=== PATIENT | male | born 1955 | race Caucasian/White ===

== ENCOUNTER 2017-02-25 11:53 | Inpatient (IN) ==
[2017-02-25] MEDS ORDERED: *HR* Heparin 5,000 UNIT/ML VIAL ONE (12:08)
[2017-02-25] MEDS ORDERED: *HR* Ticagrelor 90 MG TABLET ONE (12:08)
[2017-02-25] MEDS ORDERED: Aspirin 81 MG TAB.CHEW ONE (12:09)
[2017-02-25] MEDS ORDERED: 0.9 % Sodium Chloride 1,000 ML ONE ×2 (12:09→13:37)
[2017-02-25] MEDS: Aspirin 81 MG TAB.CHEW PO ONE ×2 (12:11→12:13)
[2017-02-25] MEDS: *HR* Ticagrelor 90 MG TABLET PO ONE ×2 (12:12→12:15)
--- NOTE | 2017-02-25 12:14 | Emergency Department Note ---
Disposition Clinical Impression: STEMI (ST elevation myocardial infarction) Qualifiers: Involved coronary artery: right coronary artery Qualified Code(s): I21.11 - ST elevation (STEMI) myocardial infarction involving right coronary artery Disposition: Admitted As Inpatient Condition: Critical Chest Pain HPI - General Chief Complaint: ED Chest Pain Stated Complaint: chest pain Time Seen by Provider: 02/25/17 12:06 Source: patient Mode of arrival: private vehicle Limitations: no limitations Vital Signs Reviewed: Yes Nursing Notes Reviewed: Yes - History of Present Illness HPI Narrative: 61-year-old male presents to the ER with a chief complaint of chest pain. Patient reports he had pain starting yesterday evening. States it "feels like spiders going across his chest". Reports the pain comes and goes for a few minutes at a time. Reports he broke out into a sweat this morning. States he tried to drywall to get through the pain. Denies prior history of cardiac disease. No history of hypertension, diabetes or hyperlipidemia. He does smoke daily. Upon arrival patient was noted to have a STEMI criteria by EKG. STEMI alert called at 12:03 Pt complaint: chest pain Onset (ago): day(s) Duration: intermittent Onset: during rest Pain Location: substernal Severity: moderate Severity scale (1-10): 5 Pain Radiation: none Improves with: nothing Worsens with: nothing Associated symptoms: Reports: diaphoresis. Denies: nausea, vomiting, dyspnea Treatments prior to arrival chest pain: none - Related Data On Oral Contraceptives: No Home Medications Medication Instructions Recorded Confirmed Ustekinumab [STELARA (For 90 mg SQ Q3M 02/25/17 02/25/17 Outpatient Infusion)] Allergies Allergy/AdvReac Type Severity Reaction Status Date / Time Amoxicillin [From Augmentin] Allergy Hives Verified 11/17/14 19:27 clavulanic acid Allergy Hives Verified 11/17/14 19:27 [From Augmentin] sulfamethoxazole Allergy Hives Verified 11/17/14 19:27 [From Bactrim] trimethoprim [From Bactrim] Allergy Hives Verified 11/17/14 19:27 All systems ED: reviewed and negative except as stated. Cardiovascular: Reports: chest pain Respiratory: Denies: cough, dyspnea Gastrointestinal: Denies: abdominal pain, nausea, vomiting, diarrhea Chest Pain PMH - Past Medical History Medical history: Reports: no medical history Surgical history: Reports: herniorrhaphy Psychiatric history: Reports: no psych history - Social History Smoking Status: Current every day smoker Alcohol use: Reports: none Drug use: Reports: none Physical Exam - General Limitations: no limitations General appearance: alert, in no apparent distress - Head Head exam: atraumatic, normocephalic - Eye Eye exam: Present: normal appearance - ENT ENT exam: normal exam - Neck Neck exam: Present: normal inspection - Chest Chest inspection: Present: normal inspection, symmetric chest wall rise - Respiratory Respiratory exam: Present: normal lung sounds bilaterally - Cardiovascular Cardiovascular exam: Present: regular rate, normal rhythm, normal heart sounds - Abdominal Exam Abdominal exam: Present: soft, Non-Tender. Absent: tenderness - Extremities Exam Extremities exam: Present: normal inspection, full ROM - Expanded Upper Extremity Exam Shoulder exam: Present: normal inspection, full ROM Arm exam: Present: normal inspection, full ROM Elbow exam: Present: normal inspection, full ROM Forearm/Wrist exam: Present: normal inspection, full ROM Hand exam: Present: normal inspection, full ROM - Expanded Lower Extremity Exam Hip/Pelvis exam: Present: normal inspection, full ROM Upper leg exam: Present: normal inspection, full ROM Knee exam: Present: normal inspection, full ROM Lower leg exam: Present: normal inspection, full ROM Ankle exam: Present: normal inspection, full ROM Foot/toe exam: Present: normal inspection, full ROM - Skin Skin exam: Present: warm, dry, intact Course Course Narrative: Patient seen and examined the time of arrival. Noted to have STEMI on EKG. We will discussed emergently with the on-call tool/die maker. We will also obtain chest x-ray as well as labs including troponin. - Consultations Consultation #1: Patient evaluated in the emergency department by interventional cardiology. Patient given aspirin and discussed with design supervisor for preference of antiplatelet. Reports Brilinta is fine. Vital Signs Temperature 96.9 F L 02/25/17 11:58 Pulse Rate 67 02/25/17 11:58 Respiratory Rate 16 02/25/17 11:58 Blood Pressure 155/102 02/25/17 11:58 O2 Sat by Pulse Oximetry 99 02/25/17 11:58 Temperature 96.9 F L 02/25/17 11:58 Pulse Rate 67 02/25/17 11:58 Respiratory Rate 16 02/25/17 11:58 Blood Pressure 155/102 02/25/17 11:58 O2 Sat by Pulse Oximetry 99 02/25/17 11:58 Oxygen Delivery Oxygen Delivery Room Air Chest Pain - MDM Narrative Medical decision making narrative: 61-year-old male presents to the ER did intermittent chest pain since yesterday. No prior history of cardiac disease. STEMI on initial EKG. Interventional cardiology evaluated the patient in the department. He will go emergently to the [facility] for evaluation. Patient given aspirin and brilinta and remained hemodynamically stable during his emergency department stay. - Lab Data Result diagrams: 02/25/17 12:10 02/25/17 12:10 Lab Results 02/25/17 02/25/17 02/25/17 Range/Units 12:10 12:10 12:10 WBC 11.0 (4.3-11.1) K/mcL RBC 5.42 (4.19-5.50) M/mcL Hgb 15.9 (12.9-16.9) g/dL Hct 47.0 (37.5-50.1) % MCV 86.7 (83.0-100.0) fL MCH 29.3 (28.0-33.3) pg MCHC 33.8 (31.6-35.5) g/dL RDW 12.8 (11.5-14.5) % Plt Count 235 (140-400) K/mcL MPV 10.8 (9.4-12.4) fL Immature Gran % 0.5 (0-4) % Seg Neutrophils % 49.5 % Lymphocytes % 36.4 % Monocytes % 9.3 % Eosinophils % 3.7 % Basophils % 0.6 % Neutrophils # 5.4 (1.6-8.9) K/mcL Lymphocytes # 4.0 (0.6-4.6) K/mcL Monocytes # 1.0 (0.0-1.3) K/mcL Eosinophils # 0.4 (0.0-0.6) K/mcL Basophils # 0.1 (0.0-0.2) K/mcL PT 10.5 (9.4-12.1) Seconds INR 1.0 APTT 27.6 (26.0-36.0) Seconds Sodium (136-145) mEq/L Potassium (3.5-5.1) mEq/L Chloride (98-107) mEq/L Carbon Dioxide (23-29) mEq/L BUN (6-20) mg/dL Creatinine (0.70-1.30) mg/dL Est GFR ( Amer) (> 60) Est GFR (Non-Af Amer) (> 60) BUN/Creatinine Ratio (6-26) Glucose (70-105) mg/dL Calculated Osmolality (280-300) Calcium (8.6-10.3) mg/dL Troponin I (< 0.04) ng/mL B-Natriuretic Peptide 23 (Less than 100) pg/mL 02/25/17 02/25/17 Range/Units 12:10 12:10 WBC (4.3-11.1) K/mcL RBC (4.19-5.50) M/mcL Hgb (12.9-16.9) g/dL Hct (37.5-50.1) % MCV (83.0-100.0) fL MCH (28.0-33.3) pg MCHC (31.6-35.5) g/dL RDW (11.5-14.5) % Plt Count (140-400) K/mcL MPV (9.4-12.4) fL Immature Gran % (0-4) % Seg Neutrophils % % Lymphocytes % % Monocytes % % Eosinophils % % Basophils % % Neutrophils # (1.6-8.9) K/mcL Lymphocytes # (0.6-4.6) K/mcL Monocytes # (0.0-1.3) K/mcL Eosinophils # (0.0-0.6) K/mcL Basophils # (0.0-0.2) K/mcL PT (9.4-12.1) Seconds INR APTT (26.0-36.0) Seconds Sodium 135 L (136-145) mEq/L Potassium 3.8 (3.5-5.1) mEq/L Chloride 103 (98-107) mEq/L Carbon Dioxide 24 (23-29) mEq/L BUN 11 (6-20) mg/dL Creatinine 1.01 (0.70-1.30) mg/dL Est GFR ( Amer) > 60 (> 60) Est GFR (Non-Af Amer) > 60 (> 60) BUN/Creatinine Ratio 11 (6-26) Glucose 115 H (70-105) mg/dL Calculated Osmolality 280 (280-300) Calcium 10.0 (8.6-10.3) mg/dL Troponin I < 0.03 (< 0.04) ng/mL B-Natriuretic Peptide (Less than 100) pg/mL - EKG Data EKG attestation: Yes I reviewed and interpreted this EKG. EKG results narrative: EKG demonstrates sinus rhythm. Normal axis. Normal intervals. Noted have elevations in leads 2, 3, aVF as well as reciprocal changes in the anterior leads V1V3. No prior EKG for comparison. Impression: STEMI Attestation Statement - Attestation Attestation: I, Merlin Perdomo DO, examined this patient [id number] and my medical decision-making was reviewed with Dr. Pedrito Waters, Resident Physician. I agree with the documented findings, disposition and treatment plan as described except to the extent set forth below. Please see my progress notes for details. 61-year-old male presents to emergency room with chest pain. EKG confirmed what appears to be an acute myocardial infarction. ST segment elevations were noted in leads 23 and aVF as well as leads V5 and V6. A STEMI alert was called at 1203 hours. Patient was provided with heparin and brilinta at the bedside by mouth. Patient has no history of GI bleed or widened mediastinum. STEMI alert protocol was started that time. Patient has had persistent symptoms here today. [facility] team is at the bedside within [address] Buckner was also at the bedside and review the EKG and consult with the patient. Again the patient to the [facility] at this time. Time of transport from the emergency department was 1220. Patient was stable speaking in full sentences in no acute distress at time of transfer to the catheterization lab. See detailed documentation of physical exam, medical intervention, medical decision-making and disposition and the resident physician's note. No critical care applied to the treatment course of this patient
[2017-02-25 12:19] LABS: Basophils # 0.1 K/mcL (0.0-0.2); Basophils % 0.6 %; Eosinophils # 0.4 K/mcL (0.0-0.6); Eosinophils % 3.7 %; Hemoglobin 15.9 g/dL (12.9-16.9); Immature Granulocytes % 0.5 % (0-4); Lymphocytes % 36.4 %; Mean Corpuscular HGB Conc 33.8 g/dL (31.6-35.5); Mean Corpuscular Hemoglobin 29.3 pg (28.0-33.3); Mean Corpuscular Volume 86.7 fL (83.0-100.0); Mean Platelet Volume 10.8 fL (9.4-12.4); Monocytes % 9.3 %; Neutrophils # 5.4 K/mcL (1.6-8.9); Platelet Count 235 K/mcL (140-400); Red Blood Count 5.42 M/mcL (4.19-5.50); Red Cell Distribution Width 12.8 % (11.5-14.5); Segmented Neutrophils % 49.5 %
[2017-02-25] MEDS ORDERED: *HR* Midazolam HCl 5 MG/5 ML VIAL IVP ONE (12:25)
[2017-02-25] MEDS ORDERED: Verapamil 5 MG/2 ML VIAL ONE (12:25)
[2017-02-25 12:26] LABS: Prothrombin Time 10.5 Seconds (9.4-12.1)
[2017-02-25] MEDS ORDERED: *HR* FentaNYL (PF) 250 MCG/5 ML VIAL ONE (12:26)
[2017-02-25 12:28] LABS: Activated Partial Thrombo Time 27.6 Seconds (26.0-36.0)
[2017-02-25 12:36] LABS: BUN/Creatinine Ratio 11 (6-26); Blood Urea Nitrogen 11 mg/dL (6-20); Carbon Dioxide 24 mEq/L (23-29); Chloride 103 mEq/L (98-107); Glucose 115 mg/dL (70-105); Osmolality,Calculated 280 (280-300); Potassium 3.8 mEq/L (3.5-5.1); Sodium 135 mEq/L (136-145); eGFR For African Americans > 60 (> 60); eGFR For Non-African Americans > 60 (> 60)
[2017-02-25] MEDS ORDERED: Tirofiban 12.5 MG/250ML 12.5 MG/250 ML BAG ONE (12:44)
[2017-02-25] MEDS ORDERED: *HR* Atropine Sulfate 1 MG/10 ML SYRINGE ONE (12:48)
[2017-02-25] MEDS ORDERED: Heparin 1,000 UNITS/500 mL 500 ML ONE (13:37)
[2017-02-25] MEDS ORDERED: *HR* Heparin 10,000 UNIT/10 ML VIAL ONE (13:37)
--- NOTE | 2017-02-25 13:46 | Cardiology Consult Note ---
Date of Encounter: 02/25/17 Time of Encounter: 11:56 Assessment and Plan Discussion w patient/family: The assessment and plan as outlined above was discussed with the patient and/or family members who expressed understanding and agreement. All questions were answered. Thank you for involving us in the care of your patient. Please call with any questions. To the manager labor relations for urgent assessment History of Present Illness Consult date: 02/25/17 Requesting physician: Merlin Perdomo Consult reason: STEMI Chief complaint: chest pain History of present illness: Mr. Granados is a 61 year old male admitted in the ED with severe CP intermittent for over a year and much worse today. Diaphoresis and some emesis. EKG with STEMI inferior and lateral wall. No known CAD hx. Fell off ladder 4 weeks ago and hurt right hip. Needs X ray Past Med Surg Social Fam HX - Past Medical History Medical history: no medical history Psychiatric history: no psych history - Past Surgical History Surgical History: herniorrhaphy - Social History Smoking Status: Current every day smoker Smokeless Tobacco Status: No Alcohol use: none Drug use: none Medications and Allergies Ustekinumab [STELARA (For Outpatient Infusion)] 90 mg SQ Q3M 02/25/17 [History] 3 Allergy/AdvReac Type Severity Reaction Status Date / Time Amoxicillin [From Augmentin] Allergy Hives Verified 11/17/14 19:27 clavulanic acid Allergy Hives Verified 11/17/14 19:27 [From Augmentin] sulfamethoxazole Allergy Hives Verified 11/17/14 19:27 [From Bactrim] trimethoprim [From Bactrim] Allergy Hives Verified 11/17/14 19:27 All Systems Review: A 10-system review of systems was performed and is negative for pertinent findings except as documented above in the HPI. - Constitutional Constitutional: fatigue, night sweats - Cardiovascular Cardiovascular: as per HPI Physical Examination General: Conversant HEENT: Atraumatic, Normocephaly Neck: No JVD Cardiac: Reg Rate and Rhythm, Normal S1 and S2, No Murmur Lungs: Normal Breath Sounds Neuro: Alert and responsive Abdomen: Soft Skin: No rashes noted on visualized skin Musculoskeletal: No Chest Wall Tenderness Extremities: No Clubbing, No Cyanosis, No Edema Results 02/25/17 12:10 02/25/17 12:10 Consult Discharge Plan - Plan Referrals: Roland Gallegos MD [Primary Care Provider] -
--- NOTE | 2017-02-25 13:52 | Invasive Diagnostic Lab Proc ---
Name: Robby Granados Date of Study: 02/25/2017 Date: 1955 Ht: 70.1in Medical Record#: [id number] Age: 61 Wt: 233.69lb Gender: Male BSA: 2.23 Order #: [id number] BMI: 33.46 Physicians Procedure Physician: Claudio Buckner MD Referring MD: Referring MD: Staff Name Position Time In [facility] RT (R) Scrub 12:19 PM Magdalene Earl RN Training Director 12:19 PM Pwael Barrow RN Monitor 12:19 PM Indications Indication STEMI Procedures Performed Procedure PRQ CARD REVASC CT 1 VSL L HRT ARTERY/VENTRICLE ANGIO PRQ CARD KEITH STENT W/ANGIO 1 VSL Pre-Procedure Checklist Informed consent is complete signed and on chart. H&P is on chart. ID band is on and ID verified with patient. Patient NPO for procedure The procedure was described for the patient and questions were answered. Blood Pressure: 137/88 ECG is on chart. Rhythm: NSR Plan of Care Patient will tolerate the procedure without complications. Adequate level of comfort will be maintained. Hemodynamics will remain stable Patient will recover from procedure without complications. Respiratory function will be maintained. Cardiac rhythm will remain stable. Patient temperature will be maintained. Patient and/or family have verbalized understanding of the procedure. Patient Education Chief Complaint/Reason for Test: Cardiac Cath Developmental Category: Adult (18-64 years) Developmentally Appropriate for Age: Yes Learning Barriers: None Education Needs: Procedure Education Method: Verbal Information Taught: Cardiac Cath Educational Evaluation: Able to repeat information Intravenous Access Time IV Size Location DC'd Fluid/Drip Rate Units RN 12:29 PM 18g 1 14" Patent On Arrival Lt Antecubital 12:29 PM 18g 1 14" Patent On Arrival Rt Antecubital 0.9NaCl 100 ml/hr Pawel Barrow RN Allergies sulfamethoxazole Amoxicillin Vital Signs Time BP (mmHg) HR (bpm) O2 Sat. RR (bpm) LOC 12:58 PM 134 / 74 75 100 % 22 01:00 PM 132 / 83 70 98 % 17 01:04 PM 120 / 80 67 100 % 11 01:05 PM 122 / 84 50 100 % 16 01:10 PM 129 / 90 52 100 % 16 01:15 PM 129 / 94 67 99 % 24 01:20 PM 91 / 47 52 100 % 22 12:25 PM 137 / 88 97 100 % 18 12:30 PM 138 / 85 75 100 % 18 12:35 PM 147 / 91 72 98 % 20 12:40 PM 147 / 100 67 100 % 22 12:45 PM 156 / 95 76 100 % 19 12:49 PM 142 / 96 50 100 % 26 12:50 PM 145 / 98 61 100 % 13 12:55 PM 147 / 88 83 100 % 10 Procedural Medications Time Medication Dose Units Method Given By 12:28 PM Oxygen 2 L/min nasal cannula Pawel Barrow RN 12:28 PM Versed 2 mg Intravenous Pawel Barrow RN 12:28 PM Fentanyl 50 mcg Intravenous Pawel Barrow RN 12:30 PM Lidocaine 2% 0.5 ml Subcutaneous Claudio Buckner MD 12:37 PM Lidocaine 2% 15 ml Subcutaneous Claudio Buckner MD 12:47 PM Heparin 3000 units Intravenous Pawel Barrow RN 12:47 PM Aggrastat 12.5mg/250ml 54 ml Intravenous Pawel Barrow RN 12:47 PM Aggrastat 12.5mg/250ml 19.5 ml Intravenous Pawel Barrow RN ASA Classification: CLASS II- Mild systemic disease (i.e. well-controlled diabetes, hypertension, asthma, cigarette smoking) Emergent Procedure: ASA score is assumed Monroe Score Preprocedure Postprocedure Activity 2- Moves 4 extremities sustained head lift Activity 2- Moves 4 extremities sustained head lift Circulation 2- SBP +/= 20 points of pre-anesthetic level Circulation 2- SBP +/= 20 points of pre-anesthetic level Consciousness 2- Awake and alert oriented x 3 Consciousness 2- Awake and alert oriented x 3 O2 Saturation 2- Able to maintain O2 satruation of 92% on room air O2 Saturation 2- Able to maintain O2 satruation of 92% on room air Respiratory 2- Able to deep breathe and cough well Respiratory 2- Able to deep breathe and cough well Total Score 10 Total Score 10 Contrast Agent: Isovue Diagnostic Contrast: 156 ml Total Contrast: 156 ml Fluoro Dose: 1287 mGy Activated Clotting Time Time Seconds to Clot 12:47 PM 153 01:07 PM 246 Procedure Log Time Note Enter By 12:12 PM CathStat 12:19 PM Pt arrived to laboratory analyst 2 at 12:19 [email or web address] 12:19 PM Physician arrived 12:19 csmith 12:19 PM Franki completed csmith 12:19 PM Sites, Georgina RT (R) Position: Scrub Time in: : csmith 12:19 PM Magdalene Earl RN Position:Monitor Time in: : csmith 12:20 PM Pawel Barrow RN Position:Training Director Time in: : csmith 12:20 PM Patient charges- Angio tray pack, Navilyst 3mm J, Pulse Oximetry and ACIST tubing and transducer csmith 12:25 PM Vitals capture started with the following parameters, Patient=Adult, Interval=5 min, Initial Iqrbacwl=309 mmHg, Deflation Rate=5 mmHg, Cuff placed on Right Arm 12:25 PM Case Start 12:25 PM HR=97 bpm, ADNA=240/88 mmhg, NmJ4=804.0 %, Resp=18 B/min, Comment=SR 12:26 PM Time out performed according to hospital policy csmith 12:26 PM Clinical Presentation: STEMI or equivalent csmith 12:27 PM Case Delayed No [email or web address] 12:28 PM Hair removed from procedure site in emergency department using clippers. Right groin prepped with Chloraprep by Magdalene Earl RN, safety strap applied then patient was draped. Skin intact. [email or web address] 12:28 PM Hair removed from procedure site in procedure lab using clippers. Right wrist prepped with Chloraprep by Magdalene Earl RN, safety strap applied then patient was draped. Skin intact. [email or web address] 12:28 PM ASA Class CLASS II- Mild systemic disease (i.e. well-controlled diabetes, hypertension, asthma, cigarette smoking) [email or web address] 12:28 PM Franki completed [email or web address] 12:28 PM Time: 12:28 Oxygen on at 2 L/min per nasal cannula by Pawel Barrow RN [email or web address] 12:28 PM Time: 12:28 Versed 2 mg Intravenous Given by Pawel Barrow RN [email or web address] 12:28 PM Time: 12:28 Fentanyl 50 mcg Intravenous Given by Pawel Barrow RN [email or web address] 12:29 PM pt received 324 aspirin, 180 brilinta and 5000 IV Heparin in the ED prior to arrival [email or web address] 12:30 PM Time: 12:30 0.5 ml Lidocaine 2% to right radial Subcutaneous Given by Claudio Buckner MD [email or web address] 12:30 PM HR=75 bpm, MENO=413/85 mmhg, JqU3=665 %, Resp=18 B/min 12:30 PM Pressure channel 2 zeroed. 12:34 PM Unsuccessful access attempt # 1 into the right Femoral artery. Manual pressure applied to achieve hemostasis.. [email or web address] 12:34 PM difficulty accessing right radial artery [email or web address] 12:35 PM prepping for femoral access [email or web address] 12:35 PM 7 ml air in Vasc Band. [email or web address] 12:35 PM HR=72 bpm, UTBA=555/91 mmhg, SpO2=98.0 %, Resp=20 B/min, Comment=SR 12:37 PM Time: 12:37 15 ml Lidocaine 2% to right groin Subcutaneous Given by Claudio Buckner MD [email or web address] 12:38 PM Access obtained by percutaneous puncture. 6Fr 10cm Terumo [place] sheath placed in right Femoral artery. [id number] [email or web address] 12:39 PM 5Fr FL 4 catheter inserted over the wire [facility] [email or web address] 12:39 PM 0.035 145cm Navilyst 3mmJ wire [id number] [email or web address] 12:40 PM Recorded Pressure: Ao, HR=72, Condition=Condition 1 (Aorta) Ao 128/88/107 12:40 PM HR=67 bpm, OJFH=249/100 mmhg, ExY1=867.0 %, Resp=22 B/min, Comment=SR 12:42 PM Catheter removed [email or web address] 12:42 PM 5Fr FR 4 catheter inserted over the wire DN [email or web address] 12:43 PM Recorded Pressure: Ao, HR=61, Condition=Condition 1 (Aorta) Ao 137/80/101 12:44 PM Lesion found in Distal RCA. Pre Stenosis: 100 Pre IRIS Flow: [email or web address] 12:45 PM Right Coronary, Right Posterior Descending Arteries with Right Posterolateral and Acute Marginal branches with 100 % stenosis. If graft is supplying this area, 0 % stenosis [email or web address] 12:45 PM Catheter removed [email or web address] 12:45 PM PCI Status Emergency [email or web address] 12:45 PM 6Fr JR 4 Runway guide catheter was used to cannulate the PCI vessel successfully. reused? No [email or web address] 12:45 PM HR=76 bpm, AHCL=156/95 mmhg, VgT6=117.0 %, Resp=19 B/min, Comment=SR 12:45 PM .014 [employer] [place] 190cm guide wire across target lesion- successful. reused? No [email or web address] 12:47 PM At 12:47 the ACT was 153 seconds. [email or web address] 12:47 PM Time: 12:47 Heparin 3000 units Intravenous Given by Pawel Barrow RN Beebe pump [email or web address] 12:47 PM Time: 12:47 Aggrastat 12.5mg/250ml 54 ml Intravenous Given by Pawel Barrow RN Beebe pump [email or web address] 12:48 PM Time: 12:47 Aggrastat 12.5mg/250ml 19.5 ml Intravenous Given by Pawel Barrow RN Beebe pump [email or web address] 12:48 PM Inflation device was opened. [email or web address] 12:48 PM 2.5 mm x 12 mm Emerge Monorail balloon across target lesion- successful. reused? No [email or web address] 12:49 PM NIBP STAT measurement started. 12:49 PM HR=50 bpm, UOAV=644/96 mmhg, StX2=885.0 %, Resp=26 B/min, Comment=SR 12:50 PM Balloon inflated @ 8 nneka for 8 seconds [email or web address] 12:50 PM HR=61 bpm, YQSY=292/98 mmhg, BlW8=347.0 %, Resp=13 B/min 12:51 PM Balloon inflated @ 8 nneka for 10 seconds [email or web address] 12:51 PM Balloon inflated @ 8 nneka for 7 seconds [email or web address] 12:52 PM Balloon inflated @ 8 nneka for 15 seconds [email or web address] 12:53 PM 2.75mm x 15mm Synergy drug-eluting stent across target lesion- successful Lot #[id number] [email or web address] 12:55 PM Stent deployed @ 19 nneka for 30 seconds [email or web address] 12:55 PM HR=83 bpm, XJJK=047/88 mmhg, OlE4=893.0 %, Resp=10 B/min 12:56 PM Stent delivery system removed intact. [email or web address] 12:57 PM NIBP STAT measurement started. 12:58 PM HR=75 bpm, IGHO=312/74 mmhg, OwT3=141 %, Resp=22 B/min 12:59 PM PCI lesion in Mid RCA. Pre Stenosis: 90 Pre IRIS Flow: [email or web address] 12:59 PM 3.0mm x 24mm Synergy drug-eluting stent across target lesion- successful Lot #[id number] [email or web address] 01:00 PM Coronary Dominance: right [email or web address] 01:00 PM HR=70 bpm, EPUN=747/83 mmhg, SpO2=98 %, Resp=17 B/min 01:00 PM Stent deployed @ 15 nneka for 30 seconds [email or web address] 01:01 PM Stent delivery system removed intact. [email or web address] 01:02 PM Guide catheter removed intact. [email or web address] 01:02 PM 6Fr XB3.5 Cordis guide catheter was used to cannulate the PCI vessel successfully. reused? No [email or web address] 01:03 PM NIBP STAT measurement started. 01:04 PM HR=67 bpm, AUXU=918/80 mmhg, DcU6=275 %, Resp=11 B/min 01:05 PM HR=50 bpm, SQZI=322/84 mmhg, LhT0=232 %, Resp=16 B/min 01:07 PM PCI lesion in Proximal LAD. Pre Stenosis: 90 Pre IRIS Flow: [email or web address] 01:07 PM At 13:07 the ACT was 246 seconds. [email or web address] 01:07 PM Proximal Left Anterior Descending Coronary Artery with 90% stenosis. If graft is supplying this territory, 0 % stenosis. [email or web address] 01:08 PM 3.0mm x 12mm Synergy drug-eluting stent across target lesion- successful Lot #[id number] [email or web address] 01:09 PM Recorded Pressure: Ao, HR=66, Condition=Condition 1 (Aorta) Ao 96/68/82 01:09 PM Stent deployed @ 18 nneka for 30 seconds [email or web address] 01:10 PM HR=52 bpm, WKHU=175/90 mmhg, XcG2=878.0 %, Resp=16 B/min, Comment=SR 01:12 PM Stent delivery system removed intact. [email or web address] 01:13 PM Recorded Pressure: LV, HR=58, Condition=Condition 1 (Left Ventricle) LV 116/14/13 01:13 PM 5Fr Pigtail catheter inserted over the wire [facility] [email or web address] 01:13 PM Catheter selectively placed in left ventricle [email or web address] 01:13 PM Bolus angiogram of left Ventricle complete: 10 ml/sec for a total of 30 mls [email or web address] 01:14 PM Recorded Pressure: LV, Ao, HR=66, Condition=Condition 1 (Left Ventricle) LV 125/1/19, (Aorta) Ao 109/48/82 01:14 PM Catheter removed [email or web address] 01:14 PM Wire removed [email or web address] 01:14 PM Bolus angiogram of right Femoral complete: 4 ml/sec for a total of 7 mls [email or web address] 01:15 PM HR=67 bpm, WOWH=638/94 mmhg, SpO2=99.0 %, Resp=24 B/min 01:16 PM Procedure completed at 13:16 [email or web address] 01:16 PM Sign out completed: Radiation Dose 1287.42 mGy Fluoro Time: 9.6 Isovue 370 - 200ml contrast 156 ml given by Claudio Buckner MD. Complications: NoneCardiac Rehab Consult needed: YesConfirmed administered medications: Yes [email or web address] 01:16 PM Isovue 370 - 200ml,1 Bottle(s) used. [email or web address] 01:17 PM Arterial sheath pulled, Angio-seal closure device used and was Successful [id number] S/N. [email or web address] 01:17 PM Estimated Blood Loss: less than 20cc [email or web address] 01:17 PM Post ECG NSR [email or web address] 01:17 PM Post Blood Pressure 129/94 [email or web address] 01:17 PM 13:17 Post Pulses Bilateral DP 1+ [email or web address] 01:17 PM Information taught Cardiac Cath, PCI, and Angioseal [email or web address] 01:17 PM Education needs Procedure, Plan of Care, and Responsibilities of Patient in Care [email or web address] 01:17 PM Learning barriers :None [email or web address] 01:17 PM Education Methods Verbal [email or web address] 01:17 PM Education evaluation Able to repeat information [email or web address] 01:18 PM Site status No bleeding/hematoma - Rt Groin as reported by Sites, Georgina RT (R) at 13:17 [email or web address] 01:20 PM Opsite applied [email or web address] 01:20 PM HR=52 bpm, NIBP=91/47 mmhg, SlE0=340.0 %, Resp=22 B/min 01:20 PM Plavix, Effient or Brilinta given Yes [email or web address] 01:20 PM Delay to floor No [email or web address] 01:20 PM Family placed in consult room. [email or web address] 01:21 PM NIBP STAT measurement started. 01:22 PM Patient out of room: 13:22 [email or web address] 01:27 PM Report given to Hanna RODRIGUEZ Pt taken to ICU Room #7. 13:27 [email or web address] Complications Complication None Hemodynamics Pressures Site Systolic/A Wave Diastolic/V Wave Mean AO 128 88 107 AO 137 80 101 AO 96 68 82 LV 116 14 13 LV 125 1 19 AO 109 48 82 Post Procedure Information Blood Pressure: 129/94 mmHg Rhythm: NSR Post procedural instructions were given Closure Device Time Device Success/Fail 02/25/2017 1:22:00 PM Angio-Seal VIP Successful Site Checks Time Location Status Staff Sheath In? Note 01:17 PM Rt Groin No bleeding/hematoma Sites, Georgina RT (R) Pulses Time Site Pre-Procedure Post-Procedure Note 02/25/2017 12:29:00 PM Bilateral DP & PT 2+ 02/25/2017 12:29:00 PM Bilateral radial 2+ 1:17:00 PM Bilateral DP 1+ Updated by Pawel Barrow RN on 02/25/2017 1:46:23 PM electronically signed on 02/25/2017 1:46:50 PM with status of Final
[2017-02-25] MEDS ORDERED: Tirofiban 12.5 MG/250ML 12.5 MG/250 ML BAG IVC SCH (14:00)
--- NOTE | 2017-02-25 14:04 | Procedure Note ---
Date of procedure: 02/25/17 Pre-op diagnosis: STEMI Post-op diagnosis: same Procedure: PTCA/stent to the RCA culprit and to the LAD Anesthesia: local Surgeon: Claudio Buckner Was there an physician office assistant present: No Estimated blood loss (cc): 10 Specimen: none Pathology: none sent Condition: stable Disposition: ICU (stable)
[2017-02-25] MEDS: *HR* Ticagrelor 90 MG TABLET PO SCH (20:35)
[2017-02-26 02:55] LABS: Basophils # 0.1 K/mcL (0.0-0.2); Basophils % 0.5 %; Eosinophils # 0.3 K/mcL (0.0-0.6); Eosinophils % 2.5 %; Hematocrit 43.5 % (37.5-50.1); Hemoglobin 14.9 g/dL (12.9-16.9); Immature Granulocytes % 0.5 % (0-4); Lymphocytes # 2.6 K/mcL (0.6-4.6); Mean Corpuscular HGB Conc 34.3 g/dL (31.6-35.5); Mean Corpuscular Hemoglobin 29.2 pg (28.0-33.3); Mean Corpuscular Volume 85.3 fL (83.0-100.0); Mean Platelet Volume 11.1 fL (9.4-12.4); Monocytes % 9.6 %; Neutrophils # 6.8 K/mcL (1.6-8.9); Platelet Count 196 K/mcL (140-400); Segmented Neutrophils % 62.9 %
[2017-02-26 03:13] LABS: BUN/Creatinine Ratio 13 (6-26); Blood Urea Nitrogen 12 mg/dL (6-20); Calcium 9.6 mg/dL (8.6-10.3); Carbon Dioxide 25 mEq/L (23-29); Chloride 104 mEq/L (98-107); Glucose 123 mg/dL (70-105); Osmolality,Calculated 285 (280-300); Sodium 137 mEq/L (136-145); eGFR For African Americans > 60 (> 60); eGFR For Non-African Americans > 60 (> 60)
[2017-02-26] MEDS ORDERED: Metoprolol XL (24 HR) Succ 25 MG TAB.ER.24H PO SCH (09:00)
[2017-02-26] MEDS ORDERED: Nitroglycerin 0.4 MG TAB.SUBL SL PRN ×2 (10:43→11:51)
[2017-02-26] MEDS ORDERED: Aspirin 81 MG TAB.CHEW PO SCH (10:45)
--- NOTE | 2017-02-26 10:48 | Cardiology Progress Note ---
Date of Encounter: 02/26/17 Time of Encounter: 10:20 Assessment and Plan (1) STEMI (ST elevation myocardial infarction) Current Visit: Yes Status: Acute Per Cardiology: Present with acute inferior lateral ST elevation MS seen by Dr. Buckner and taken for urgent catheterization February 25, 2017 and underwent "PTCA/stent to the RCA culprit and to the LAD". Troponin negative. Currently chest pain-free. Echo pending. On aspirin, statin, beta oswaldo, Brilinta. Has SL NTG. Appears clinically stable. Plan to transfer to floor today with possible discharge tomorrow. No significant events noted on telemetry. Has CR C/S. Qualifiers: Involved coronary artery: right coronary artery Qualified Code(s): I21.11 - ST elevation (STEMI) myocardial infarction involving right coronary artery (2) Nicotine abuse Current Visit: Yes Status: Chronic Per Cardiology: History of smoking half a pack to one pack per day for 46 years. I dispensed 3- 5 minutes a day providing smoking cessation counseling and education. Patient desires to try to quit on his own accord. Denies any assistance at this time. (3) Hip pain, right Current Visit: Yes Status: Acute Per Cardiology: Reported fall a few weeks ago with complaints of right hip pain. Per patient and family was told in ER x-ray would be obtained. Will obtain right hip x-ray for further evaluation. Discussion w patient/family: The assessment and plan as outlined above was discussed with the patient and/or family members who expressed understanding and agreement. All questions were answered. Thank you for involving us in the care of your patient. Please call with any questions. Subjective Principal diagnosis: Inferior lateral STEMI Interval history: Patient seen today with family at bedside, denies any current chest pain, short breath, palpitations. Denies any concerns from his right wrist or right groin site. Denies any known history of CAD. Objective Vital Signs, Last 4 Hours Temp Pulse Resp BP Pulse Ox 02/26/17 10:00 61 16 121/92 96 02/26/17 09:00 61 16 121/80 96 02/26/17 08:42 67 02/26/17 08:00 97.6 F 67 16 128/81 96 General: Conversant, No Apparent Distress HEENT: Atraumatic, Normocephaly, Mucus Membranes Moist Neck: No JVD, Normal carotid pulses Cardiac: Reg Rate and Rhythm, Normal S1 and S2, No Murmur Lungs: Normal Breath Sounds, No Wheeze, Rales, Rhonchi Neuro: Alert and responsive, No focal deficits noted Abdomen: Soft, Non-Tender Skin: No rashes noted on visualized skin, Other (Right wrist and right groin sites dry and intact, no hematoma, no bleeding, no ecchymosis, right radial and DP and PT pulses 2+ palpable) Musculoskeletal: No Chest Wall Tenderness Extremities: No Clubbing, No Cyanosis, No Edema, Normal Pulses Results 02/26/17 02:35 02/26/17 02:35 Lab Results Laboratory Tests 02/25/17 02/25/17 02/25/17 12:10 12:10 14:23 Troponin I < 0.03 B-Natriuretic Peptide 23 LDL Cholesterol, Calc 160 H Active Medications Aspirin (Aspirin) 81 mg PO DAILY TAMARA Stop: 08/28/17 10:46 Atorvastatin Calcium (Lipitor) 40 mg PO HS TAMARA Stop: 08/27/17 21:01 Last Admin: 02/25/17 20:35 Dose: 40 mg Metoprolol Succinate (Toprol Xl) 25 mg PO DAILY TAMARA Stop: 08/28/17 09:01 Nitroglycerin (Nitroglycerin) 0.4 mg SL Q5MIN PRN PRN Reason: Chest Pain Stop: 08/28/17 10:44 Ticagrelor (Brilinta) 90 mg PO BID TAMARA Stop: 08/27/17 21:01 Last Admin: 02/25/17 20:35 Dose: 90 mg - Imaging and Cardiology Echo: pending Cardiac cath: report reviewed - EKG Interpretation EKG results cardiology: other (Sinus rhythm on telemetry, average heart rate passed over 64, one 3 beat nonsustained VT) - VTE Reasons for not Prescribing Prophylaxis: Treatment not Indicated - Low risk for VTE Consult Discharge Plan - Plan Referrals: Roland Gallegos MD [Primary Care Provider] -
[2017-02-26] MEDS: *HR* Ticagrelor 90 MG TABLET PO SCH ×2 (11:48→20:08)
[2017-02-27 07:12] VITALS: BP 117/84
[2017-02-27] MEDS: *HR* Ticagrelor 90 MG TABLET PO SCH (08:00)
--- NOTE | 2017-02-27 08:18 | Discharge Summary ---
Date of Encounter: 02/27/17 Time of Encounter: 08:20 - Discharge Diagnosis (1) STEMI (ST elevation myocardial infarction) Priority: Primary Status: Acute Qualifiers: Involved coronary artery: right coronary artery Qualified Code(s): I21.11 - ST elevation (STEMI) myocardial infarction involving right coronary artery (2) Nicotine abuse Priority: Secondary Status: Chronic (3) Hip pain, right Priority: Secondary Status: Acute Comments: FINDINGS: There are minimal degenerative changes of the hips. Enthesophytes identified along the periphery of the innominate bones. There is stable appearance of focal benign-appearing protuberant lesion along the lateral aspect of the intertrochanteric region of the right proximal femur. Finding is suggestive of presence of osteochondroma. No evidence of acute fracture or dislocation. There are degenerative changes of lumbar spine. Spiral tackers overlie the lower abdomen/pelvis suggestive of prior hernia repair. XR/XR hip complete RT IMPRESSION: 1. No evidence of acute fracture. Follow-up examination recommended in 7-10 days if clinically indicated. 2. Findings suggestive of presence of osteochondroma projecting from the lateral aspect of the intertrochanteric region of the right proximal femur as described above. Patient will follow up with pcp. - Discharge Medications Prescriptions: Nitroglycerin 0.4 mg SL Q5MIN PRN #30 tab.subl PRN Reason: Chest Pain Atorvastatin [Lipitor] 40 mg PO HS #30 tablet Metoprolol XL (24 HR) Succ [Toprol Xl] 25 mg PO DAILY #30 tab.er.24h Ticagrelor [Brilinta] 90 mg PO BID #60 tablet Home Medications: Ustekinumab [STELARA (For Outpatient Infusion)] 90 mg SQ Q3M 02/25/17 [History] Aspirin 81 mg PO DAILY tab.chew 02/27/17 [Rx] Atorvastatin [Lipitor] 40 mg PO HS #30 tablet 02/27/17 [Rx] Metoprolol XL (24 HR) Succ [Toprol Xl] 25 mg PO DAILY #30 tab.er.24h 02/27/17 [ Rx] Nitroglycerin 0.4 mg SL Q5MIN PRN #30 tab.subl 02/27/17 [Rx] Ticagrelor [Brilinta] 90 mg PO BID #60 tablet 02/27/17 [Rx] Allergies/Adverse Reactions: 3 Allergy/AdvReac Type Severity Reaction Status Date / Time Amoxicillin [From Augmentin] Allergy Hives Verified 11/17/14 19:27 clavulanic acid Allergy Hives Verified 11/17/14 19:27 [From Augmentin] sulfamethoxazole Allergy Hives Verified 11/17/14 19:27 [From Bactrim] trimethoprim [From Bactrim] Allergy Hives Verified 11/17/14 19:27 Procedures/tests Complete & Pending: Procedures Performed prior 72 hours Category Date Time Status ECG 12 lead ECG [ECG] Routine Y 02/25/17 13:55 Ordered ECG 12 lead ECG [ECG] Routine Y 02/26/17 07:00 Stop Req ECG 12 lead ECG [ECG] Stat Y 02/25/17 13:55 Ordered EV echocardiogram Routine Y 02/26/17 13:55 Completed Date of admission: 02/25/17 12:18 Primary care physician: Roland Gallegos MD Consults: 02/25/17 13:55 Consult to Cardiac Rehabilitation-Phase1 [CONS] Routine Comment: Reason for Consult: AMI Call Completed: Yes Consult to Nurse Navigator [CONS] Routine Comment: Discharging clinician: Mark Onofre Anticipated date of discharge: 02/27/17 - Patient Status Disposition: Home, Self-Care Condition: Fair Functional capacity at discharge: independent ambulation Overall status at discharge: patient is progressing back to baseline - Discharge Instructions Instructions: Metoprolol (By mouth), Nitroglycerin, Rapid Release (By mouth), Atorvastatin (By mouth), Ticagrelor (By mouth), Myocardial Infarction (DC), Cigarette Smoking and Your Health, 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 Smoking or tobacco use significantly increases your risk of heart disease because nicotine causes the arteries to narrow or constrict. It also causes fats to stick to the artery. Your chances of having a heart attack are greatly increased if you continue to smoke. For more information, call the education line for smoking cessation 4-565-XMWBRXO EAT A LOW FAT/CHOLESTEROL/SODIUM DIET: This diet may help reduce your chances of having a heart attack. LIFTING: With affected extremity: Avoid bending, pushing off and lifting more than 2 pounds for 24 hours The following 48 hours, avoid lifting anything more than 5 pounds Avoid strenuous activity or repetitive motions ACTIVITY: You may walk or climb stairs as tolerated You can resume sexual activity as tolerated In general, you are encouraged to engage in a minimum of 30 minutes or more of moderate intensity physical activity, such as brisk walking, daily or at least 3 -4 times weekly BATHING Do not submerge the site into water (bath tub, hot tub, swimming pool, dishes) for 1 week. This can be a source for infection into the blood stream. You may shower after 24 hours SITE CARE: After 24 hours, you may remove the dressing and leave the site open to air. Keep the site clean and dry. Clean gently and pat dry. You can expect bruising and tenderness that gradually resolve within a week or two. Return to work as instructed per your physician Resume driving as instructed per physician Keep all scheduled follow up appointments Resume medications as instructed IMPORTANT: If prescribed a Platelet Aggregation Inhibitor such as, Plavix, Brilinta or Effient: Duration of therapy is minimum one year These medications are often used in combination with Aspirin in prevention of future heart attacks Never discontinue unless consult with your Construction Superintendent STROKE (CVA) Risk factors for a stroke are: Age, cigarette smoking, diabetes, excessive alcohol consumption, family history, high blood pressure, overweight, physical inactivity, prior stroke, heart attack, diagnosis of carotid artery stenosis or other artery disease. Warning signs: Sudden numbness or weakness of the face, arm or leg; especially on one side of the body, sudden confusion, trouble speaking or understanding, sudden trouble seeing in one or both eyes, sudden trouble walking, dizziness, loss of balance or coordination, sudden severe headache with no cause. Call 911 or go to the Emergency Room. CONGESTIVE HEART FAILURE: If you have been diagnosed with Congestive Heart Failure (CHF) and your symptoms return, make an appointment with your physician Weigh yourself daily. Notify your physician if you have a weight gain of two or more pounds in one day or five or more pounds in one week. If you experience any difficulty breathing, please call 911 BLEEDING: Although the risk of bleeding is minimal, it can happen. If you have any bleeding from the site, apply firm pressure above the puncture site for 10-15 minutes. If the bleeding does not stop, continue manual pressure and call 911 Contact [facility] ( ) if: You develop a fever greater than 101 degrees Fahrenheit Your site becomes reddened or has any drainage You have an increase in pain or burning at the site or if a large knot forms at the site. If you experience chest pain, shortness of breath, dizziness, or extreme tiredness, stop the activity and rest. Please notify [facility] office if you experience any of these symptoms and they are not relieved by rest please call 911!RISK FACTORS: STOP SMOKING: If you smoke, STOP. Smoking or tobacco use significantly increases your risk of heart disease because nicotine causes the arteries to narrow or constrict. It also causes fats to stick to the artery. Your chances of having a heart attack are greatly increased if you continue to smoke. For more information, call the education line for smoking cessation 4-924-UDODRUE EAT A LOW FAT/CHOLESTEROL/SODIUM DIET: This diet may help reduce your chances of having a heart attack. LIFTING: With affected extremity: Avoid bending, pushing off and lifting more than 2 pounds for 24 hours The following 48 hours, avoid lifting anything more than 5 pounds Avoid strenuous activity or repetitive motions ACTIVITY: You may walk or climb stairs as tolerated You can resume sexual activity as tolerated In general, you are encouraged to engage in a minimum of 30 minutes or more of moderate intensity physical activity, such as brisk walking, daily or at least 3 -4 times weekly BATHING Do not submerge the site into water (bath tub, hot tub, swimming pool, dishes) for 1 week. This can be a source for infection into the blood stream. You may shower after 24 hours SITE CARE: After 24 hours, you may remove the dressing and leave the site open to air. Keep the site clean and dry. Clean gently and pat dry. You can expect bruising and tenderness that gradually resolve within a week or two. Return to work as instructed per your physician Resume driving as instructed per physician Keep all scheduled follow up appointments Resume medications as instructed IMPORTANT: If prescribed a Platelet Aggregation Inhibitor such as, Plavix, Brilinta or Effient: Duration of therapy is minimum one year These medications are often used in combination with Aspirin in prevention of future heart attacks Never discontinue unless consult with your Construction Superintendent STROKE (CVA) Risk factors for a stroke are: Age, cigarette smoking, diabetes, excessive alcohol consumption, family history, high blood pressure, overweight, physical inactivity, prior stroke, heart attack, diagnosis of carotid artery stenosis or other artery disease. Warning signs: Sudden numbness or weakness of the face, arm or leg; especially on one side of the body, sudden confusion, trouble speaking or understanding, sudden trouble seeing in one or both eyes, sudden trouble walking, dizziness, loss of balance or coordination, sudden severe headache with no cause. Call 911 or go to the Emergency Room. CONGESTIVE HEART FAILURE: If you have been diagnosed with Congestive Heart Failure (CHF) and your symptoms return, make an appointment with your physician Weigh yourself daily. Notify your physician if you have a weight gain of two or more pounds in one day or five or more pounds in one week. If you experience any difficulty breathing, please call 911 BLEEDING: Although the risk of bleeding is minimal, it can happen. If you have any bleeding from the site, apply firm pressure above the puncture site for 10-15 minutes. If the bleeding does not stop, continue manual pressure and call 911 Contact [facility] ( ) if: You develop a fever greater than 101 degrees Fahrenheit Your site becomes reddened or has any drainage You have an increase in pain or burning at the site or if a large knot forms at the site. If you experience chest pain, shortness of breath, dizziness, or extreme tiredness, stop the activity and rest. Please notify [facility] office if you experience any of these symptoms and they are not relieved by rest please call 911! - Diet and Activity Diet: low fat, low cholesterol, low salt diet - Hospital Course Hospital course: Mr. Granados is a 61 year old male presented with acute inferior lateral ST elevation NE seen by Dr. Buckner and taken for urgent catheterization February 25, 2017 and underwent "PTCA/stent to the RCA culprit and to the LAD". Trop 2.92. Echo showed preserved EF. No events noted on telemetry. He had right hip x -ray for fall a few weeks ago-- no acute findings, has what appears to be benign osteochondroma. Will follow-up with PCP, verbalized understanding. Prepping for discharge home today in stable condition. Education provided to not discontinue aspirin and Brilinta for at least one year unless directed by cardiology. Education was provided regarding his right groin and right wrist site care post procedure. CP free. All questions answered. [email or web address] assistance card provided. To remain of work until seen in office. Time spent discussing smoking cessation with patient: 3 to 10 minutes - Time Spent with Patient Total time spent providing and/or coordinating discharge services: Less than 30 minutes Physical Examination Vital Signs, Last 4 Hours Temp Pulse Resp BP Pulse Ox 02/27/17 07:07 97.8 F 90 14 117/84 95 02/27/17 05:00 97.6 F 55 18 110/69 96 ECHO: Impressions: LVEF 55-60%. Overall normal LV systolic function. Not all wall segments were well visualized. Mild left ventricular diastolic dysfunction. Normal right ventricular structure and function. No significant valvular dysfunction. No pulmonary hypertension. Left Ventricular Wall Motion: Rest Echo Findings The apical anterior, mid anterior and basal anterior powell were not visualized. All other wall segments showed normal motion. General: Conversant, No Apparent Distress HEENT: Atraumatic, Normocephaly, Mucus Membranes Moist Neck: No JVD, Normal carotid pulses Cardiac: Reg Rate and Rhythm, Normal S1 and S2, No Murmur Lungs: Normal Breath Sounds, No Wheeze, Rales, Rhonchi Neuro: Alert and responsive, No focal deficits noted Abdomen: Soft, Non-Tender Skin: No rashes noted on visualized skin Musculoskeletal: No Chest Wall Tenderness Extremities: No Clubbing, No Cyanosis, No Edema, Normal Pulses - VTE Reasons for not Prescribing Prophylaxis: Treatment not Indicated - Low risk for VTE
[2017-02-27] MEDS ORDERED: Metoprolol XL (24 HR) Succ 25 MG TAB.ER.24H PO SCH (09:00)
[2017-02-27] MEDS ORDERED: Aspirin 81 MG TAB.CHEW PO SCH (09:00)
--- NOTE | 2017-02-28 07:14 | Electrocardiograph Report ---
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
--- NOTE | 2017-03-01 07:52 | Electrocardiograph Report ---
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
--- NOTE | 2017-03-01 07:53 | Electrocardiograph Report ---
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
== END 2017-02-27 10:33 | disposition home or self-care (01) | DRG 247 ==
LOC: EMEROO 11:53 → ICNU 12:18 → 2NENU 02-26 18:30
PROVIDERS: ADMIT Nurse Practitioner Adult Health; ATTEND Internal Medicine Interventional Cardiology

== ENCOUNTER 2017-11-07 07:45 | Observation (INO) ==
[2017-11-07] MEDS ORDERED: Naloxone 0.4 MG/ML INJ IVP PRN (10:46)
[2017-11-07] MEDS ORDERED: Nitroglycerin 0.4 MG TAB.SUBL SL PRN (10:48)
[2017-11-07] MEDS ORDERED: Metoprolol XL (24 HR) Succ 25 MG TAB.ER.24H PO SCH (11:00)
[2017-11-07 11:18] LABS: Hematocrit 40.9 % (37.5-50.1); Hemoglobin 13.3 g/dL (12.9-16.9); Mean Corpuscular HGB Conc 32.5 g/dL (31.6-35.5); Mean Corpuscular Volume 89.1 fL (83.0-100.0); Mean Platelet Volume 11.3 fL (9.4-12.4); Platelet Count 164 K/mcL (140-400); Red Blood Count 4.59 M/mcL (4.19-5.50); Red Cell Distribution Width 12.9 % (11.5-14.5); White Blood Count 7.9 K/mcL (4.3-11.1)
[2017-11-07 11:26] LABS: Prothrombin Time 11.7 Seconds (9.4-12.1)
[2017-11-07 11:37] LABS: BUN/Creatinine Ratio 21 (6-26); Blood Urea Nitrogen 19 mg/dL (8-23); Calcium 9.9 mg/dL (8.6-10.3); Carbon Dioxide 28 mEq/L (23-29); Chloride 107 mEq/L (98-107); Glucose 137 mg/dL (70-105); Osmolality,Calculated 292 (280-300); Sodium 139 mEq/L (136-145); eGFR For African Americans > 60 (> 60); eGFR For Non-African Americans > 60 (> 60)
[2017-11-07] MEDS ORDERED: *HR* Midazolam HCl 2 MG/2 ML VIAL ONE (14:43)
[2017-11-07] MEDS ORDERED: *HR* FentaNYL (PF) 100 MCG/2 ML VIAL ONE (14:43)
[2017-11-07] MEDS ORDERED: 0.9 % Sodium Chloride 1,000 ML ONE (14:44)
[2017-11-07] MEDS ORDERED: *HR* Ticagrelor 90 MG TABLET PO SCH (21:00)
[2017-11-08 07:40] VITALS: BP 121/71
[2017-11-08] MEDS ORDERED: Aspirin 81 MG TAB.CHEW PO SCH (09:00)
== END 2017-11-08 09:55 | disposition home or self-care (01) ==
LOC: 3BNU 07:45 → CARSER 07:45
PROVIDERS: ADMIT Emergency Medicine; ATTEND Emergency Medicine